=== PATIENT | female | born 1955 | race Caucasian/White ===

== ENCOUNTER 2023-08-22 15:35 | Outpatient (RCR) | payer MEDICARE, SELFPAY | END 2023-08-22 23:59 | disposition home or self-care (01) | LOC: RPT 15:35 | PROVIDERS: ATTENDING PHYSICIAN Physical Medicine & Rehabilitation Sports Medicine; FAMILY PHYSICIAN Family Medicine | DX: M62.89 Other specified disorders of muscle (principal); M54.50 Low back pain, unspecified; Z73.6 Limitation of activities due to disability | CPT/HCPCS: 97110; 97140; 97162; 97535 ==

== ENCOUNTER 2023-09-12 15:07 | Outpatient (RCR) | payer MEDICARE, SELFPAY | END 2023-09-12 23:59 | disposition home or self-care (01) | LOC: RPT 15:07 | PROVIDERS: ATTENDING PHYSICIAN Physical Medicine & Rehabilitation Sports Medicine; FAMILY PHYSICIAN Family Medicine | DX: M54.50 Low back pain, unspecified (principal); R10.2 Pelvic and perineal pain; M53.3 Sacrococcygeal disorders, not elsewhere classified; M62.89 Other specified disorders of muscle | CPT/HCPCS: 97110; 97140 ==

== ENCOUNTER → 2023-10-08 14:43 | Outpatient (REF) | payer MEDICARE, SELFPAY | LOC: DHCBC MAIN 14:43 | PROVIDERS: ATTENDING PHYSICIAN Internal Medicine; FAMILY PHYSICIAN Family Medicine | DX: I10 Essential (primary) hypertension (principal); I49.3 Ventricular premature depolarization; I63.81 Other cerebral infarction due to occlusion or stenosis of small artery | CPT/HCPCS: 93306 ==

== ENCOUNTER → 2023-10-15 08:23 | Outpatient (REF) | payer MEDICARE, SELFPAY | LOC: RAD 08:23 | PROVIDERS: ATTENDING PHYSICIAN Internal Medicine; FAMILY PHYSICIAN Family Medicine | DX: I10 Essential (primary) hypertension (principal); I49.3 Ventricular premature depolarization; I63.81 Other cerebral infarction due to occlusion or stenosis of small artery | CPT/HCPCS: 93880 ==

== ENCOUNTER 2023-10-17 15:19 | Outpatient (RCR) | payer MEDICARE, SELFPAY | END 2023-10-17 23:59 | disposition home or self-care (01) | LOC: RPT 15:19 | PROVIDERS: ATTENDING PHYSICIAN Physical Medicine & Rehabilitation Sports Medicine; FAMILY PHYSICIAN Family Medicine | DX: M54.50 Low back pain, unspecified (principal); M62.89 Other specified disorders of muscle; Z73.6 Limitation of activities due to disability | CPT/HCPCS: 97110; 97112; 97140 ==

== ENCOUNTER → 2023-10-19 10:33 | Outpatient (REF) | payer MEDICARE, SELFPAY | LOC: WDC 10:33 | PROVIDERS: ATTENDING PHYSICIAN Obstetrics & Gynecology; FAMILY PHYSICIAN Family Medicine | DX: Z13.820 Encounter for screening for osteoporosis (principal); Z12.31 Encounter for screening mammogram for malignant neoplasm of breast; Z78.0 Asymptomatic menopausal state; M89.9 Disorder of bone, unspecified | CPT/HCPCS: 77063; 77067; 77080 ==

== ENCOUNTER 2023-11-14 15:18 | Outpatient (RCR) | payer MEDICARE, SELFPAY | END 2023-11-14 23:59 | disposition home or self-care (01) | LOC: RPT 15:18 | PROVIDERS: ATTENDING PHYSICIAN Physical Medicine & Rehabilitation Sports Medicine; FAMILY PHYSICIAN Family Medicine | DX: M54.50 Low back pain, unspecified (principal); M62.89 Other specified disorders of muscle; Z73.6 Limitation of activities due to disability | CPT/HCPCS: 97110; 97112; 97140 ==

== ENCOUNTER → 2023-11-29 08:54 | Outpatient (REF) | payer MEDICARE, SELFPAY | LOC: WDC 08:54 | PROVIDERS: ATTENDING PHYSICIAN Obstetrics & Gynecology; FAMILY PHYSICIAN Family Medicine | DX: R92.2 Inconclusive mammogram (principal) | CPT/HCPCS: 76641 ==

== ENCOUNTER 2023-12-13 12:29 | Outpatient (RCR) | payer MEDICARE, SELFPAY | END 2023-12-13 23:59 | disposition home or self-care (01) | LOC: RPT 12:29 | PROVIDERS: ATTENDING PHYSICIAN Physical Medicine & Rehabilitation Sports Medicine; FAMILY PHYSICIAN Family Medicine | DX: M54.50 Low back pain, unspecified (principal); M62.89 Other specified disorders of muscle (principal); Z73.6 Limitation of activities due to disability | CPT/HCPCS: 97110; 97140 ==

== ENCOUNTER 2024-01-07 13:55 | Outpatient (RCR) | payer MEDICARE, SELFPAY | END 2024-01-07 23:59 | disposition home or self-care (01) | LOC: RPT 13:55 | PROVIDERS: ATTENDING PHYSICIAN Physical Medicine & Rehabilitation Sports Medicine; FAMILY PHYSICIAN Family Medicine | DX: M54.50 Low back pain, unspecified (principal); M62.89 Other specified disorders of muscle; Z73.6 Limitation of activities due to disability | CPT/HCPCS: 97110; 97140 ==

== ENCOUNTER 2024-02-06 15:00 | Outpatient (RCR) | payer MEDICARE, SELFPAY | END 2024-02-06 23:59 | disposition home or self-care (01) | LOC: RPT 15:00 | PROVIDERS: ATTENDING PHYSICIAN Physical Medicine & Rehabilitation Sports Medicine; FAMILY PHYSICIAN Family Medicine | DX: M54.50 Low back pain, unspecified (principal); M62.89 Other specified disorders of muscle; Z73.6 Limitation of activities due to disability | CPT/HCPCS: 97110; 97112; 97140 ==

== ENCOUNTER → 2024-06-16 08:36 | Outpatient (REF) | payer MEDICARE, SELFPAY | LOC: WDC 08:36 | PROVIDERS: ATTENDING PHYSICIAN Obstetrics & Gynecology; FAMILY PHYSICIAN Family Medicine | DX: R92.8 Other abnormal and inconclusive findings on diagnostic imaging of breast (principal) | CPT/HCPCS: 76642 ==

== ENCOUNTER 2024-08-04 06:22 | Day surgery (SDC) | payer MEDICARE, SELFPAY | END 2024-08-04 11:39 | disposition home or self-care (01) | LOC: GI 06:22 | PROVIDERS: ATTENDING PHYSICIAN Internal Medicine Gastroenterology | DX: D12.0 Benign neoplasm of cecum (principal); D12.2 Benign neoplasm of ascending colon; D12.3 Benign neoplasm of transverse colon; D12.5 Benign neoplasm of sigmoid colon; K63.5 Polyp of colon; K63.89 Other specified diseases of intestine; K57.30 Diverticulosis of large intestine without perforation or abscess without bleeding; Z86.0101 Personal history of adenomatous and serrated colon polyps | CPT/HCPCS: 45385; 88305 ==

== ENCOUNTER 2024-12-02 22:22 | Emergency (ER) | payer MEDICARE, SELFPAY ==
[2024-12-02 22:25] VITALS: BP 96/58
[2024-12-03 00:06] VITALS: BP 100/68
[2024-12-03 00:07] VITALS: BMI 19.8
--- NOTE | 2024-12-03 00:59 | ED.GENMED ---
History of Present Illness
General
Chief Complaint: Fall
Source: patient and spouse
Exam Limitations: none
Time Seen by Provider: 12/03/24 00:10
Nursing documentation reviewed up to this point in time: agreed with
History of Present Illness
History of Present Illness:
69-year-old female presents emergency art department head injury. She was walking her dog and her feet got tangled in the leash. She states that she fell hitting her head. She denies loss of consciousness. She admits to drinking several glasses of
wine this evening. Initially she thought she was up-to-date on her tetanus but now states that she is unsure. We did order a tetanus shot. She reports no anticoagulation. Denies any
Past History
Past History
ED Past Medical History: Psychiatric
ED Past Surgical History: None
Social History
Tobacco: Non-smoker
Alcohol: None
Drug: None
Living: with family
Employment: Employed
Review of Systems
Review of Systems
Allergies reviewed?: Yes
All Other Systems: ROS reviewed and negative except as documented in HPI and ROS
Constitutional: Reports no symptoms
EENT: Reports no symptoms
Respiratory: Reports no symptoms
Cardiac: Reports no symptoms
ABD/GI: Reports no symptoms
: Reports no symptoms
Musculoskeletal: Reports no symptoms
Skin: Reports no symptoms
Neurological: Reports no symptoms
Endocrine: Reports no symptoms
Hematologic/Lymphatic: Reports no symptoms
Psychiatric: Reports anxiety
Phy Exam
General Physical Exam
General Presentation: well appearing and no apparent distress
General Skin: warm and dry
General Habitus: normal
General Mental: alert
General Hydration: appears well hydrated
ENT Exam
ENT Exam: EOMI, TM's normal (No hemotympanum), pharynx normal, neck supple, normocephalic and other (No septal hematoma)
Eye Exam
Eye Exam: PERRL, cornea clear and conjunctiva normal
Cardiovascular Exam
Cardiovascular Exam: regular rate/rhythm, no edema, no murmur and normal peripheral pulses
Pulmonary Exam
Pulmonary Exam: lungs clear, no respiratory distress, no rales, no crackles, no rhonchi, no stridor, no wheezing and no cough
Gastrointestinal Exam
Gastrointestinal Exam: normal bowel sounds, non tender, soft, no organomegaly, no pulsatile mass and non distended
Neurological Exam
Neurological Exam: alert, oriented x3, no motor deficits and speech normal
Musculoskeletal Exam
Musculoskeletal Exam: full ROM and no edema
Skin Exam
Skin Exam: normal color, warm/dry, no rash, no petechia and laceration
Psychiatric Exam
Psychiatric Exam: normal mood/affect
Course
Orders/Labs/Results
Orders:
Orders
12/02/24 22:[address] [CT Head W/o Iv Contrast] Urgent
Comment:
Reason For Exam: head injury
12/02/24 22:45
CT Facial Bones W/o Iv Contras Urgent
Comment:
Reason For Exam: Fall
12/03/24 00:59
Tetanus/Diphth/Acelpertussis [Adacel] 0.5 ml IM .ONCE ONE
Vital Signs
Initial and Last Documented VS:
Initial Vital Signs
Temp Pulse Resp BP Pulse Ox
98 F 76 16 96/58 95
12/02/24 22:25 12/02/24 22:25 12/02/24 22:25 12/02/24 22:25 12/02/24 22:25
Last Documented Vital Signs
Temp Pulse Resp BP Pulse Ox
98.1 F 79 18 100/68 97
12/03/24 00:06 12/03/24 00:06 12/03/24 00:06 12/03/24 00:06 12/03/24 00:06
Procedures
Laceration Closure
Left Face:
Status of Wound: clean
Size of Wound in cm: 2
Description of Wound Edges: sharp, surrounded by abrasion and macerated (Small area of maceration)
Preparation: cleaned with soap & water
Anesthesia: 1% Lidocaine
Revision/Debridement: routine- no revision
Wound exploration: explored to base- no FB
Type of Closure: single layer closure
Skin Closure Material: 5-0 nylon
Number of sutures: 3
Additional information:
Patient tolerated procedure well with no immediate adverse effects. Part of the laceration is in the eyebrow.
*Radiology
Radiology exam reviewed: radiology read reviewed
*Pulse Oximetry
Patient hypoxic: no
*Critical Care Note
Total Time (30-74mins, 75-104mins- exclusive of procedures): Not Applicable
ED Attending Note
-
Portions of this chart may have been created with voice recognition software.� Occasional wrong word or��sound alike� substitutions may have occurred due to the inherent limitations of voice recognition software.
Discharge Plan
Departure
Patient Disposition: Home (Routine Discharge)
Date of Disposition: 12/03/24
Time of Disposition: 01:05
Patient with high blood pressure during this ER visit?: Yes
Discharge Problem:
Fall, Head injury, Laceration of eyebrow
Instructions: Wound Care (DC), Head Injury in Adults (DC), Laceration Repair With Stitches (DC), Preventing falls in adults
Prescriptions:
No Action
methocarbamol [Robaxin-750] 750 MG tablet
750 mg PO TID Qty: 15 0RF
cyclobenzaprine 10 MG tablet
10 mg PO TIDPRN PRN (Reason: headache) Qty: 25 0RF
Referrals:
Aaron Cosby DO [Family Provider] -
Activity Restrictions/Additional Instructions:
Sutures can be removed in 5 to 7 days.
Your tetanus was updated today.
Thank You for choosing [facility].
It was a pleasure meeting you and taking part in your care. We hope for your continued healing and wellness.
Please read discharge instructions in their entirety. However, they are for general education and may not describe your exact diagnosis at discharge. Information on your ER visit and medical conditions were discussed with you along with appropriate
follow up information...
If indicated, please take your medications as instructed and indicated on discharge paperwork.
Please schedule a follow up appointment as directed. Call to schedule an appointment
Please return to the emergency department with ANY change in, persisting, or worsening of symptoms. If any of your symptoms do not improve, or persist, or become more severe within 6-12 hours, please return to the emergency department for further
care.
Please return to the emergency department if you develop a headache, neck pain/stiffness, fever greater than 100.4F, chest pain, shortness of breath, persistent nausea, vomiting, slurred speech, difficulty walking, numbness/tingling, weakness, signs
of infection or any other symptoms that are worrisome to you.
If you have any questions or concerns please do not hesitate to call the Hospital at or E-mail me directly at [email or web address]
Interventions
Interventions:
*Risk Screen - Suicide Last Done: 12/02/24 22:27
*Neglect/Abuse Screening Last Done: 12/02/24 22:27
Discharge Date and Time
Print Language: MALIAN
[2024-12-03] MEDS: ADACEL 0.5 ML IM (01:03)
== END 2024-12-03 01:13 | disposition home or self-care (01) ==
LOC: EMR 22:22
PROVIDERS: EMERGENCY PHYSICIAN Student in an Organized Health Care Education/Training Program; FAMILY PHYSICIAN Family Medicine
DX: S01.112A Laceration without foreign body of left eyelid and periocular area, initial encounter (principal); W18.09XA Striking against other object with subsequent fall, initial encounter; Y93.K1 Activity, walking an animal; Z23 Encounter for immunization
CPT/HCPCS: 12011; 90471; 99284; 70450; 70486; 90715

== ENCOUNTER → 2024-12-18 13:44 | Outpatient (REF) | payer MEDICARE, SELFPAY | LOC: WDC 13:44 | PROVIDERS: ATTENDING PHYSICIAN Obstetrics & Gynecology; FAMILY PHYSICIAN Family Medicine | DX: Z12.31 Encounter for screening mammogram for malignant neoplasm of breast (principal) | CPT/HCPCS: 77063; 77067 ==

== ENCOUNTER → 2024-12-22 13:09 | Outpatient (REF) | payer MEDICARE, SELFPAY | LOC: WDC 13:09 | PROVIDERS: ATTENDING PHYSICIAN Obstetrics & Gynecology; FAMILY PHYSICIAN Family Medicine | DX: R92.2 Inconclusive mammogram (principal); R92.8 Other abnormal and inconclusive findings on diagnostic imaging of breast | CPT/HCPCS: 76641 ==